=== PATIENT | female | born 1955 | race American Indian/Alaskan Native ===

== ENCOUNTER 2023-12-24 08:10 | Outpatient (CLI) | payer OTHER ==
[~2023-12-24 08:10] MED LIST: COZAAR100 MG; NORVASC10 MG; SYNTHROID50 MCG
== END 2023-12-24 08:23 | disposition home or self-care (01) ==
LOC: RX STUDY 08:10
PROVIDERS: ATTEND Internal Medicine Gastroenterology
DX: R13.10 Dysphagia, unspecified (principal)

== ENCOUNTER 2024-03-18 06:57 | Emergency (ER) | payer OTHER ==
[~2024-03-18] VITALS: Ht 172.7 cm; Wt 77.1 kg
[2024-03-18] MEDS ORDERED: SYNTHROID75 MCG PO (07:12)
== END 2024-03-18 10:19 ==
LOC: ER 06:59
DX: I10 Essential (primary) hypertension (principal); E03.9 Hypothyroidism, unspecified; Z91.013 Allergy to seafood